=== PATIENT | female | born 1945 | race Caucasian/White ===

== ENCOUNTER 2023-04-21 09:54 | Outpatient (CLI) | payer MEDICARE ==
[~2023-04-21 09:54] MED LIST: Magnevist 469MG/ML 20 ML VIAL ONE
== END 2023-04-21 09:55 | disposition home or self-care (01) ==
LOC: CSHMRI 09:54
PROVIDERS: ATTEND Family Medicine
DX: R55 Syncope and collapse (principal); J32.3 Chronic sphenoidal sinusitis; G93.89 Other specified disorders of brain
CPT/HCPCS: 70553